=== PATIENT | male | born 2005 | race Caucasian/White ===

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

== ENCOUNTER 2023-01-20 07:57 | Day surgery (SDC) | payer MEDICAID, SELFPAY ==
[2023-01-20] VITALS (9 sets, daily range): BP systolic 121–132; BP diastolic 45–70; PULSE 67–83; RESP 14–18; TEMP 36.4–37.1; O2SAT 97–100; BMI 21.2
--- NOTE | 2023-01-20 07:54 | ANES.PREOP_ITS ---
General Info Date of Service Date Performed: 01/20/23 Height: 6 ft Weight: 71 kg Body Mass Index (BMI): 21.2 Surgical Procedure: Operation Date: 01/20/23 10:10 Proposed Procedure Side Surgeon p Tonsillectomy & Adenoidectomy Dhaval Ballard MD Meds Allergies and Home Medications Allergies Allergy/AdvReac Type Severity Reaction Status Date / Time No Known Allergies Allergy Verified 01/20/23 08:14 Home Medication Medication Instructions Recorded aluminum chloride 20 % topical 1 applic topical QWEEK #35 mL 10/11/22 solution (Drysol Dab-O-Matic) fluticasone propionate 50 1 spray intranasal DAILY #16 grams 10/28/22 mcg/actuation nasal spray,suspension (Flonase Allergy Relief) loratadine 10 mg tablet (Claritin) 10 mg PO DAILY #60 tabs 10/28/22 lisdexamfetamine 60 mg capsule 60 mg PO QAM #30 caps 12/23/22 (Vyvanse) methylphenidate HCl 10 mg tablet 10 mg PO BID #60 tabs 12/23/22 Current Visit Medications: Current Medications Generic Name Dose Route Start Last Admin Trade Name Freq PRN Reason Stop Dose Admin Ringer's Solution 1,000 mls @ 100 mls/hr 01/20/23 06:00 IV 02/16/23 23:59 INFUSION NELSON Cefazolin Sodium/Dextrose 2 gm in 50 mls @ 100 mls/hr 01/20/23 06:00 Ancef Duplex IVPB 02/16/23 23:59 PREOP NELSON Tranexamic Acid 1,000 mg/ 60 mls @ 360 mls/hr 01/20/23 06:00 Sodium Chloride IVPB 01/20/23 18:00 PREOP NELSON IV Miscellaneous Supplies 1 each 01/20/23 06:00 Iv Access IV 02/16/23 23:59 DIRECTED NELSON Sodium Chloride 0 ml 01/20/23 06:00 Normal Saline Flush 10 Ml Syr IV 02/16/23 23:59 PRN PRN Sodium Chloride 0 ml 01/20/23 06:00 Normal Saline 10 Ml Vial IJ 02/16/23 23:59 DIRECTED PRN Sterile Water 0 ml 01/20/23 06:00 Water,Injection,Sterile 10 Ml Vial IJ 02/16/23 23:59 DIRECTED PRN PFSH Active Problems Active Problems: Problem Status Onset Code Pharyngeal dysphagia R13.13 Snoring R06.83 Tonsillar hypertrophy J35.1 Chlamydia contact Z20.2 Excessive sweating R61 Acne L70.9 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 Bracing option offered Surgical History Surgical History (Updated 01/20/23 @ 09:48 by Dhaval Ballard MD) Circumcision History of tonsillectomy and adenoidectomy 01/20/2023 Tobacco Passive smoking exposure: Yes (MOM) Vital Signs and Lab Results Vital Signs Most Recent Vital Signs in EMR: Temp Pulse Resp BP Pulse Ox 36.5 C 83 17 123/70 100 01/20/23 08:15 01/20/23 08:15 01/20/23 08:15 01/20/23 08:15 01/20/23 08:15 Lab Results Blood Type / Crossmatch: No Data to Display Complete Blood Count: No Data to Display Complete Metabolic Panel: No Data to Display Liver Function Panel: No Data to Display Coagulation Panel: No Data to Display Cardiac Panel: No Data to Display Arterial Blood Gas: No Data to Display Venous Blood Gas: No Data to Display Pancreas Panel: No Data to Display Thyroid Panel: No Data to Display Infectious Disease: No Data to Display Blood Cultures: No Data to Display Toxicology Panel: No Data to Display Anesthesia Assessment and Plan Anesthesia History Personal History: No History of Anesthesia Complications Family History: No Family History of Anesthesia Complications Exercise Tolerance Exercise Tolerance: Metabolic Equivalents>4 Cardiac & Pulmonary Exam Cardiac Exam: Normal S1/S2 Heart Sounds Pulmonary Exam: Clear Bilateral Breath Sounds Implantable Cardiac Device Does patient have a Pacemaker or an ICD?: No Airway Exam Known Difficult Airway: No Mallampati Class: 1 Mouth Opening: Normal (> 3cm) Thyromental Distance: Greater than 3 cm Neck Range of Motion: Full ROM Neck Circumference: Normal Teeth Condition: Normal Dentition ASA Classification ASA Score: ASA 2 Emergency Case?: No NPO Status NPO Status: NPO Clears >2 hours, Solids >8 hours Anesthesia Plan Resuscitation Status: Full Code Anesthesia Technique: General Anesthesia Airway Planned: Endotracheal Tube Monitors Used: Standard Monitors Preoperative Comments:: 17 yo male for TA removal. Sig PMHx: KONRAD, ADD, pectus carinatum, Currently with slight stuffiness, likely allergies, discussed risks.
[2023-01-20] MEDS: Lactated Ringers 1,000 ML 100 ML IV (08:27)
--- NOTE | 2023-01-20 09:52 | W.PM.DSUDISC ---
Date of service: 01/20/23 Time of Service: 09:52 Discharge Plan Disposition Patient Disposition: Home Condition: Good Discharge Details Attending Provider: Dhaval Ballard Primary Care Provider: Heidi Cantrell Home Meds and New Rx's Prescriptions: No Action Drysol Dab-O-Matic 20 % solution 1 applic topical QWEEK Qty: 35 1RF fluticasone propionate [Flonase Allergy Relief] 50 mcg/actuation spray,suspension 1 spray intranasal DAILY Qty: 16 2RF Rx Instructions: administer into each nostril loratadine [Claritin] 10 mg tablet 10 mg PO DAILY Qty: 60 2RF Vyvanse 60 mg capsule 60 mg PO QAM MDD 1 Qty: 30 0RF methylphenidate HCl 10 mg tablet 10 mg PO BID MDD 2 Qty: 60 0RF Discharge Instructions Additional Instructions: My cell phone number is [phone]. Please call with any questions or concerns. If you are unable to reach me and you feel this is an emergency, please proceed to the emergency room or call 911 Stand Alone Forms: ENT- T&A Instr. Nellie Referrals: Dhaval Ballard MD [ [facility] STAFF PHYSICIAN] - (1 month, please call for appointment prior to patient's departure) Discharge Orders Discharge Orders: Discharge Order (Routine); Ordered 01/20/23 Ordered By: Dhaval Ballard
[2023-01-20] MEDS: ceFAZolin 2 GM/50 ML BAG IVPB (10:18)
--- NOTE | 2023-01-20 10:45 | TONSIL_PTH ---
PATIENT: Blayne Angel LOC: [facility] U#:[id number] AGE/SX: 17/M ROOM: RE01/20/[address]: Dhaval Ballard MD : 2005 BED: DIS: 01/20/2023 SPEC #: [id number] RECD: 01/20/23 13:09 STATUS: CHUCHO RE #: [id number] VLADIMIR: 01/20/23 10:[address]: Dhaval Ballard DEPT: Surgical Specimen RECD BY: Nadja Easton ENTERED: 01/20/23 13:11 SP TYPE: TONSIL OTHR DR: Heidi Cantrell MD Tissues: 1 - TONSIL AGE 17 & OVER 2 - TONSIL AGE 17 & OVER 3 - UVULA Procedures: GROSS AND MICRO LEVEL 4 GROSS AND MICRO LEVEL 3 Comments: [id number]
--- NOTE | 2023-01-20 11:13 | ROE_ITS ---
Date of service: 01/20/23 Time of Service: 11:13 Operative Note Operative Note DATE OF PROCEDURE: 01/20/23 PRE-OP DIAGNOSIS: Adenotonsillar hypertrophy, uvular hypertrophy POST-OP DIAGNOSIS: same PROCEDURE: Adenotonsillectomy, partial uvulectomy SURGEON: hDaval Ballard ANESTHESIA TYPE: General LMA/ETT Refer to Anesthesia Record ESTIMATED BLOOD LOSS: 50 PATHOLOGY: other (Tonsils, uvula) COMPLICATIONS: None Patient was transported to: PACU Patient's condition: stable Indications: Patient with the above problems. This is proven medically recalcitrant and chronic and is causing him obstructive symptoms. Options were explained to the patient and his mother regarding further management. They elected to undergo the above procedure. Consent was filled out and signed prior to surgery. H&P was reviewed. There have been no changes. Risks of narcotics including respiratory depression and dependence were discussed at length. Narcotics awar eness sheet was signed by the patient Findings: 4+ tonsils, 2+ adenoids, long pedunculated uvula Procedure Description: After obtaining an adequate level of general endotracheal anesthesia the patient was positioned in supine position and prepped and draped in appropriate fashion. 0.25% Marcaine with 1/100,000 epinephrine was injected in the submucosal plane around each tonsil. Each tonsil was then pulled medially and posteriorly and a 12 blade used to incise the mucosa along the superior, anterior, and posterior edges of the tonsil. A Nidhi elevator was used to disarticulate the tonsil from the superior tonsillar fossa and then a Nash blade used to strip the tonsil free from tonsillar fossa down towards the inferior pole. Because of the size of the tonsils, the tonsils were removed piecemeal. Once tonsil been removed completely, electrocautery suction tip catheter set on 15 W coagulation was used to achieve relative hemostasis within the tonsillar beds. Catheter was then passed through the right nares [place] back of throat and brought forward to retract the soft palate out of the way. Electrocautery suction tip catheter set on 35 W coagulation was then used to ablate the adenoidal tissue. The posterior choana were widely patent at the end of the case. No trauma was induced on the zoran. Attention was then turned to the uvula. It was crossclamped, leaving approximately 1 cm of the uvula. This was then sharply excised and electrocautery suction tip catheter sent on 10 W coagulation was used to affect hemostasis along the stump. The patient was then Valsalva revealing no further bleeding. The Ashish German mouthgag was relaxed and reopened revealing no further bleeding. The Ashish German mouthgag and the catheter were removed and the patient was then awakened and expanded by anesthesia and taken to recovery room in stable condition. I was present throughout the entire case.
--- NOTE | 2023-01-20 11:33 | W.ANESPOSTOP ---
Postoperative Evaluation Date, Time and Location Date Performed: 01/20/23 Time Performed: 11:33 Patient Location: PACU Vital Signs Most Recent Imported Vital Signs: Most Recent Vital Signs Temp Pulse Resp BP Pulse Ox 37.1 C 72 18 132/49 L 98 01/20/23 11:15 01/20/23 11:25 01/20/23 11:25 01/20/23 11:25 01/20/23 11:25 Pain Score Most Recent Pain Score: Most Recent Pain Score Pain Level 2 01/20/23 11:25 Assessment Mental Status: Arousable with meaningful communication Airway and Respiratory Function: Patent airway with normal (patient baseline) respiratory exam Cardiovascular Function: Hemodynamically Stable Hydration Status: Adequately Hydrated Nausea & Vomiting: No Nausea or Vomiting Pain: Pain is tolerable per patient Peripheral Nerve Block: Patient did not receive a nerve block
[2023-01-20] MEDS: HYDROmorphone 2 MG/ML SYR IVP (11:35)
[2023-01-20] MEDS: Normal Saline 10 ML VIAL IJ (11:35)
== END 2023-01-20 12:38 | disposition home or self-care (01) ==
PROVIDERS: Visit Provider Otolaryngology
PROC: (CPT 42821; principal; 2023-01-20 10:00)
DX: J35.3 Hypertrophy of tonsils with hypertrophy of adenoids (principal); K13.79 Other lesions of oral mucosa
CPT/HCPCS: 42821; 42140; 88305; 88304; J0131; J0690; J1100; J1170; J2405; J3475

== ENCOUNTER 2023-04-30 07:55 | Outpatient (REF) | payer MEDICAID, SELFPAY | END 2023-04-30 07:56 | disposition home or self-care (01) | LOC: LBO 07:55 | DX: Z11.3 Encounter for screening for infections with a predominantly sexual mode of transmission (principal) | CPT/HCPCS: 87491; 87591 ==

== ENCOUNTER 2024-03-01 16:36 | Outpatient (REF) | payer MEDICAID, SELFPAY | END 2024-03-01 16:37 | disposition home or self-care (01) | LOC: LBN 16:36 | DX: Z20.2 Contact with and (suspected) exposure to infections with a predominantly sexual mode of transmission (principal) | CPT/HCPCS: 87491; 87591 ==

== ENCOUNTER 2024-06-01 16:16 | Outpatient (REF) | payer MEDICAID, SELFPAY ==
[2024-06-03 12:18] LABS: Chlamydia Result Negative (Negative); GC Result Negative (Negative)
== END 2024-06-01 16:17 | disposition home or self-care (01) ==
LOC: LBN 16:16
PROVIDERS: PCP Nurse Practitioner Family; Referring Provider Nurse Practitioner Family; Visit Provider Nurse Practitioner Family
DX: Z20.2 Contact with and (suspected) exposure to infections with a predominantly sexual mode of transmission (principal)
CPT/HCPCS: 87491; 87591